=== PATIENT | male | born 1990 | race Caucasian/White ===

== ENCOUNTER 2022-11-05 22:59 | Emergency (ER) | payer SELFPAY ==
[2022-11-05 23:02] VITALS: BMI 25.0
[2022-11-05] MEDS: LORazepam 2 mg/mL INJ 1 mL IM (23:26)
[2022-11-05] MEDS: ziprasidone 20 mg/mL SDV IM (23:26)
[2022-11-05] MEDS: water for injection-sterile 10 ML 2 ML (23:26)
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
[2022-11-05 23:36] VITALS: BP 122/88; PULSE 115; RESP 25; O2SAT 97
[2022-11-05 23:55] LABS: Basophils # 0.1 10^3/uL (0.0-0.1); Basophils % 0.8 %; Eosinophils # 0.2 10^3/uL (0.0-0.8); Eosinophils % 2.4 %; Hematocrit 44.9 % (37-53); Lymphocytes # 4.1 10^3/uL (0.8-4.8); Lymphocytes % 41.5 %; Mean Corpuscular HGB Conc 34.3 g/dL (30-55); Mean Corpuscular Hemoglobin 30.7 pg (27-33); Mean Corpuscular Volume 89.6 fl (82-101); Mean Platelet Volume 9.9 fL (7.4-10.4); Monocytes # 0.6 10^3/uL (0.2-0.9); Monocytes % 6.6 %; Neutrophils # 4.73 10^3/uL (1.8-7.7); Neutrophils % 48.5 %; Nucleated Red Blood Cells % 0 %; Platelet Count 216 10^3/cmm (157-399); Red Blood Count 5.01 10^6/uL (3.85-5.65); White Blood Count 9.75 10^3/uL (3.29-11.43)
--- NOTE | 2022-11-06 00:05 | PC.NURSE ---
RESTRAINTS D/C AT 2345. PT ASLEEP AND CALM AT THIS TIME.
[2022-11-06 00:07] VITALS: BP 117/79; PULSE 111; PULSE 113; RESP 24; O2SAT 94
[2022-11-06 00:15] VITALS: BP 117/79; PULSE 113; RESP 24; O2SAT 93
[2022-11-06 00:15] LABS: Acetaminophen < 5.0 ug/mL (10-30); Alanine Aminotransferase 60 U/L (0-41); Albumin Level 4.6 g/dL (3.5-5.2); Alkaline Phosphatase 89 U/L (40-130); Anion Gap 16.4 (5-19); Aspartate Amino Transferase 48 U/L (0-40); Blood Urea Nitrogen 19 mg/dL (6-20); Calcium 9.2 mg/dL (8.5-10.5); Carbon Dioxide 24 mmol/L (22-29); Chloride 102 mmol/L (98-107); Globulin 2.3 g/dL (1.3-4.6); Glomerular Filtration Rate 85.5 mL/min (90-130); Glucose 96 mg/dL (65-115); Osmolality Calculated 290 mOsm/kg (285-295); Potassium 3.4 mmol/L (3.5-5.1); Salicylate < 0.3 mg/dL (3-10); Sodium 139 mmol/L (136-145); Total Bilirubin 0.2 mg/dL (0.15-1.2); Total Protein 6.9 g/dL (6.6-8.7)
[2022-11-06 00:16] LABS: Alcohol Level 329 mg/dL (0-10)
[2022-11-06 00:30] VITALS: BP 117/79; PULSE 114; RESP 24; O2SAT 93
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
[2022-11-06 05:30] VITALS: BP 108/65; PULSE 82; RESP 13; O2SAT 96
--- NOTE | 2022-11-06 06:54 | PC.NURSE ---
to room to assess pt. pt resting comfortably with blanket over head. respirations even and non labored. urine noted on floor. asked pt if he would allow me to help clean him up and he states no i'm fine i just want to be left alone!. will defer until later to attempt to clean him up again.
== END 2022-11-06 08:08 | disposition home or self-care (01) ==
PROVIDERS: Emergency Provider Emergency Medicine
DX: F10.129 Alcohol abuse with intoxication, unspecified (principal); Y90.8 Blood alcohol level of 240 mg/100 ml or more
CPT/HCPCS: 36415; 80053; 80307; 85025; 96372; 99284; J2060; J3486